=== PATIENT | female | born 1990 | race Caucasian/White ===

== ENCOUNTER 2020-06-26 11:49 | Emergency (ER) | payer OTHER, SELFPAY ==
[2020-06-26 12:10] VITALS: BP 127/74; PULSE 76; RESP 16; TEMP 37.2; O2SAT 98
--- NOTE | 2020-06-26 12:31 | ED.DENTAL ---
HPI - Dental/Oral General Chief complaint: Dental/Oral Stated complaint: Oral Time Seen by Provider: 06/26/20 12:31 Source: patient, RN notes reviewed and old records reviewed Mode of arrival: ambulatory Limitations: no limitations History of Present Illness HPI Narrative: 29 year old female who presents to [facility] care stating that she is 10 weeks and has been experiencing red swollen and bleeding gums since start of . She states also that for the past 5 days she has been experiencing dental pain to the right lower back molar which is broken off with swelling of gum surrounding tooth, no drainage noted.Patient states that she has not seen a dentist for at least 2 years for routine dental care. She states that she has been taking Tylenol for her discomfort. MD Complaint: tooth pain Location: Tooth # (#30) Onset (ago): day(s) (5) Duration: constant Severity: mild Severity scale (1-10): 2 Relieving factors: nothing Exacerbating factors: chewing Context: history of dental caries and poor dental care Associated symptoms: gum swelling and other (gums bleeding) Treatment prior to arrival: other (Tylenol) Related Data Allergies Allergy/AdvReac Type Severity Reaction Status Date / Time No Known Allergies Allergy Unverified 06/26/20 12:18 Review of Systems Review of Systems: Narrative: CONSTITUTIONAL: Denies fever, chills, or sweats. EYES: Denies visual changes, redness, or discharge. ENT: Denies rhinorrhea, congestion, sore throat, or otalgia,positive for dental pain and bleeding gums. CARDIOVASCULAR: Denies chest pain, palpitations, or edema. RESPIRATORY: Denies cough or dyspnea. GASTROINTESTINAL: Denies abdominal pain, nausea, vomiting, or diarrhea. GENITOURINARY: Denies dysuria or hematuria. SKIN: Denies rash or itching. MUSCULOSKELETAL: Denies back pain, joint pain, or myalgia. NEUROLOGIC: Denies headache, numbness, or weakness. PSYCHIATRIC: Denies anxiety or depression. All systems reviewed & are unremarkable except as noted in HPI and below PMFSH Past Medical History Medical History (Updated 06/28/20 @ 14:38 by Kalee Mayfield NP) Dental abscess Surgical History Surgical History (Updated 06/28/20 @ 14:39 by Kalee Mayfield NP) No history of previous surgery Family History Family History (Updated 06/28/20 @ 14:39 by Kalee Mayfield NP) Other No significant family history Social History Social History (Updated 06/28/20 @ 14:40 by Kalee Mayfield NP) Smoking status: Never smoker Alcohol intake: unknown Substance use: unknown Living arrangements: with family Gender identity (if verbalized by the patient): Female Comments At time of signature, agree with nursing past medical, surgical, social and family history. There is no relevant family history pertinent to the presenting complaint Exam Narrative: Exam Narrative: GENERAL: Well-appearing, well-nourished, and in no acute distress. HEAD: Normocephalic, atraumatic. EYES: PERRLA and EOMI. ENT: Nares clear, no rhinorrhea or epistaxis. Mucous membranes moist.TM's normal with good light reflex, throat pink with no swelling or redness present. abscess noted to gums at #30 tooth with no drainage present, tooth appears to be broken off close to gum line, incidence of bleeding gums with brushing, gums are red and swollen no routine dental care obtained for several years stated, gum bleeding noted since .no Nahun angina, no trismus noted or facial swelling. NECK: Supple.no lymphadenopathy CHEST: Clear to auscultation. No respiratory distress.SAO2 98% on room air HEART: Regular rate and rhythm. No murmur heard. Normal peripheral pulses. ABDOMEN: Soft, nontender, nondistended, normal active bowel sounds. EXTREMITIES: Normal range of motion. No edema. SKIN: Warm, dry, no rash. NEURO: No focal deficits. Alert and oriented x3. Course Vital Signs Vital signs: Vital Signs Temperature 37.2 C 06/26/20 12:10 Pulse Rate 7
== END 2020-06-26 12:53 | disposition home or self-care (01) ==
PROVIDERS: Emergency Provider Registered Nurse
DX: O99.611 Diseases of the digestive system complicating pregnancy, first trimester (principal); Z3A.10 10 weeks gestation of pregnancy; K04.7 Periapical abscess without sinus; K05.10 Chronic gingivitis, plaque induced
CPT/HCPCS: 99213; G0463

== ENCOUNTER 2020-08-11 15:41 | Emergency (ER) | payer OTHER, SELFPAY ==
[2020-08-11 15:46] VITALS: BP 114/76; PULSE 87; RESP 20; TEMP 36.3; O2SAT 100
--- NOTE | 2020-08-11 15:50 | ED.DENTAL ---
HPI - Dental/Oral General Chief complaint: Dental/Oral Stated complaint: tooth pain Time Seen by Provider: 08/11/20 15:50 Source: patient Mode of arrival: ambulatory Limitations: no limitations History of Present Illness HPI Narrative: Patient presents with a history of gingivitis. Patient states she has had a flare and has gum pain. Patient denies any trouble swallowing no drooling. Patient has appoint with a dentist next week. MD Complaint: tooth pain Severity scale (1-10): 4 Relieving factors: nothing Exacerbating factors: nothing Related Data Allergies Allergy/AdvReac Type Severity Reaction Status Date / Time No Known Allergies Allergy Unverified 06/26/20 12:18 Review of Systems Review of Systems: Narrative: CONSTITUTIONAL: Denies fever, chills, or sweats. EYES: Denies visual changes, redness, or discharge. ENT: Denies rhinorrhea, congestion, sore throat, or otalgia. CARDIOVASCULAR: Denies chest pain, palpitations, or edema. RESPIRATORY: Denies cough or dyspnea. GASTROINTESTINAL: Denies abdominal pain, nausea, vomiting, or diarrhea. GENITOURINARY: Denies dysuria or hematuria. SKIN: Denies rash or itching. MUSCULOSKELETAL: Denies back pain, joint pain, or myalgia. NEUROLOGIC: Denies headache, numbness, or weakness. PSYCHIATRIC: Denies anxiety or depression. PMFSH Past Medical History Medical History (Updated 08/11/20 @ 16:04 by EMETERIO Sanchez) Dental abscess Surgical History Surgical History (Updated 06/28/20 @ 14:39 by Kalee Mayfield NP) No history of previous surgery Family History Family History (Updated 06/28/20 @ 14:39 by Kalee Mayfield NP) Other No significant family history Social History Social History (Updated 06/28/20 @ 14:40 by Kalee Mayfield NP) Smoking status: Never smoker Alcohol intake: unknown Substance use: unknown Gender identity (if verbalized by the patient): Female Comments At time of signature, agree with nursing past medical, surgical, social and family history. There is no relevant family history pertinent to the presenting complaint Exam Narrative: Exam Narrative: GENERAL: Well-appearing, well-nourished, and in no acute distress. HEAD: Normocephalic, atraumatic. EYES: PERRLA and EOMI. ENT: Nares clear, no rhinorrhea or epistaxis. Mucous membranes moist. NO FEVER. NO JAW SWELLING. NO NECK SWELLING. NO LIMITATION WITH SPEAKING OR SWALLOWING. HAS A HISTORY OF DENTAL CARIES. HAS NOT SEEN A DENTIST RECENTLY. Redness and increase swelling to the gingiva NECK: Supple. CHEST: Clear to auscultation. No respiratory distress. HEART: Regular rate and rhythm. No murmur heard. Normal peripheral pulses. ABDOMEN: Soft, nontender, nondistended, normal active bowel sounds. EXTREMITIES: Normal range of motion. No edema. SKIN: Warm, dry, no rash. NEURO: No focal deficits. Alert and oriented x3. Coyle Coma Scale Eye Opening: Spontaneous 4 Coyle Coma Scale Motor: Obeys Commands 6 Coyle Coma Scale Verbal: Oriented 5 Coyle Coma Scale Total 15 Course Vital Signs Vital signs: Vital Signs Temperature 36.3 C L 08/11/20 15:46 Pulse Rate 87 08/11/20 15:46 Respiratory Rate 20 08/11/20 15:46 Blood Pressure 114/76 08/11/20 15:46 Pulse Oximetry 100 08/11/20 15:46 Temperature 36.3 C L 08/11/20 15:46 Pulse Rate 87 08/11/20 15:46 Respiratory Rate 20 08/11/20 15:46 Blood Pressure 114/76 08/11/20 15:46 Pulse Oximetry 100 08/11/20 15:46 MDM - Dental/Oral Differential Diagnosis Differential diagnosis: Likely gingival abscess, dental caries, toothache, dental abscess, fracture of tooth and aphthous ulcer Critical Care Time Critical Care Time Critical Care Time: No Discharge Plan Discharge Clinical Impression: Gingivitis Patient Disposition: Home, Self-Care Condition: Stable Instructions: Antibiotic Form, Gingivitis (ED) Additional Instructions: Take antibiotics as prescribed Follow-up with dentist
== END 2020-08-11 16:08 | disposition home or self-care (01) ==
PROVIDERS: Emergency Provider Nurse Practitioner Family
DX: K05.10 Chronic gingivitis, plaque induced (principal)
CPT/HCPCS: 99213; G0463